=== PATIENT | female | born 1945 | race Caucasian/White ===

== ENCOUNTER 2020-09-07 15:39 | Emergency (ER) | payer SELFPAY ==
[~2020-09-07] VITALS: Ht 152.4 cm; Wt 120.4 kg
[2020-09-07 16:09] VITALS: BP 190/92; Ht 152.4 cm; Wt 120.4 kg
== END 2020-09-07 16:45 | disposition left against medical advice (07) ==
LOC: D.ER 15:39
DX: T14.8XXA Other injury of unspecified body region, initial encounter (principal)